=== PATIENT | female | born 1985 | race Caucasian/White ===

== ENCOUNTER → 2020-04-16 | Outpatient (CLI) | payer OTHER ==
[~2020-04-16] MED LIST: BUPRENORPHINE HC2 MG SL; IBU800 M1 PO; PRENATAL TABLE1 EAC2 PO
[2020-04-17 14:49] LABS: Appearance, Urine Clear (Clear); Bilirubin, Urine Neg (Neg); Blood, Urine Neg (Neg); Color, Urine Yellow (P-Yellow); Glucose Qualitative, Urine Neg (Neg); Ketones, Urine 3+ (Neg); Leukocyte Esterase, Urine Neg (Neg); Nitrite, Urine Neg (Neg); Protein, Urine Neg (Neg); Specific Gravity, Urine 1.015 (1.003-1.022); Urobilinogen, Urine NORM (Normal)
[2020-05-30 14:17] LABS: Source, Urine Clean Catch
== END ==
LOC: LAB SHORT 14:39 → LAB 14:39
PROVIDERS: Nurse Practitioner
DX: R10.2 Pelvic and perineal pain (principal)
CPT/HCPCS: 81003

== ENCOUNTER 2020-09-22 11:48 | Inpatient (IN) | payer OTHER ==
[~2020-09-22] VITALS: Ht 167.6 cm; Wt 199.0 kg
[2020-09-22] MEDS ORDERED: PRENATAL TABLE1 EAC2 PO (12:59)
[2020-09-22 13:00] LABS: BASOPHILS ABSOLUTE AUTO 0.03 K/mm3 (0.00-0.23); BASOPHILS PERCENT AUTO 0 % (0-2); EOSINOPHILS ABSOLUTE AUTO 0.05 K/mm3 (0.00-0.68); EOSINOPHILS PERCENT AUTO 1 % (0-6); Hemoglobin 10.2 g/dL (11.5-16.0); IMMATURE GRAN ABSOLUTE AUTO 0.04 K/mm3 (0.00-0.10); IMMATURE GRAN PERCENT AUTO 1 % (0-1); LYMPHOCYTES ABSOLUTE AUTO 2.08 K/mm3 (0.84-5.20); LYMPHOCYTES PERCENT AUTO 24 % (21-46); MONOCYTES ABSOLUTE AUTO 0.52 K/mm3 (0.16-1.47); MONOCYTES PERCENT AUTO 6 % (4-13); Mean Corpuscular HGB 23.9 pg (26.0-34.0); Mean Corpuscular HGB Conc 31.9 g/dL (31.5-36.5); Mean Corpuscular Volume 75 fL (80-100); Mean Platelet Volume 9.5 fL (9.1-12.4); NEUTROPHILS ABSOLUTE AUTO 5.96 K/mm3 (1.96-9.15); NEUTROPHILS PERCENT AUTO 69 % (41-73); Platelet Count 339 K/mm3 (150-400); RDW Coefficient Variation 14.1 % (11.7-14.2); RDW Standard Deviation 36.9 fL (35.1-46.3); Red Blood Cell Count 4.26 M/mm3 (3.80-5.20); White Blood Cell Count 8.68 K/mm3 (4.00-11.30)
[2020-09-22 13:26] LABS: SARS-Cov-2 (COVID-19) PCR, MMC NEGATIVE (NEGATIVE)
[2020-09-23 05:43] LABS: BASOPHILS ABSOLUTE AUTO 0.02 K/mm3 (0.00-0.23); BASOPHILS PERCENT AUTO 0 % (0-2); EOSINOPHILS PERCENT AUTO 0 % (0-6); Hemoglobin 8.6 g/dL (11.5-16.0); IMMATURE GRAN ABSOLUTE AUTO 0.08 K/mm3 (0.00-0.10); IMMATURE GRAN PERCENT AUTO 1 % (0-1); LYMPHOCYTES ABSOLUTE AUTO 1.94 K/mm3 (0.84-5.20); LYMPHOCYTES PERCENT AUTO 12 % (21-46); MONOCYTES ABSOLUTE AUTO 1.14 K/mm3 (0.16-1.47); MONOCYTES PERCENT AUTO 7 % (4-13); Mean Corpuscular HGB Conc 31.9 g/dL (31.5-36.5); Mean Corpuscular Volume 75 fL (80-100); Mean Platelet Volume 9.6 fL (9.1-12.4); NEUTROPHILS ABSOLUTE AUTO 13.44 K/mm3 (1.96-9.15); NEUTROPHILS PERCENT AUTO 81 % (41-73); Platelet Count 264 K/mm3 (150-400); RDW Coefficient Variation 14.1 % (11.7-14.2); RDW Standard Deviation 37.1 fL (35.1-46.3); Red Blood Cell Count 3.59 M/mm3 (3.80-5.20); White Blood Cell Count 16.62 K/mm3 (4.00-11.30)
--- NOTE | 2020-09-23 07:30 | NUR ---
0715 ASSUMED CARE REPT FROM [place] SOTO RN, PT CURRENTLY BREAST FEEDING USING NIPPLE SHIELD, WATER AND LINENS PASSED PT REQUEST RN RETURN AFTER NB BREAST FEEDS, PT CURRENTLY STATES PAIN LEVEL 4/10 "MY BODY JUST ACHES" BUT DELCINED NEEDING PAIN MEDICATION AT THIS TIME
--- NOTE | 2020-09-23 07:40 | NUR ---
LINENS PASSED PT SELF AMBULATES TO BATHROOM WITHOUT ASSISTANCE
--- NOTE | 2020-09-23 09:00 | NUR ---
ASSUMED CARE. PT SLEEPING SOUNDLY.
--- NOTE | 2020-09-23 09:02 | NUR ---
REPT TO Bautista DAVID RN
--- NOTE | 2020-09-23 10:30 | NUR ---
IN TO DO LAST BLOOD SUGAR ON NB, ASSIST WITH BRF LATCH. DOING WELL. ENCOURGED TO CALL WITH FEEDS NEEDED.
--- NOTE | 2020-09-25 06:32 | NUR ---
AT 0530 PT REQUESTED BUPENOPHRINE FOR RELIEF OF PAIN AND ANXIETY, AT 0630 PT STATES SHE FEELS MUCH IMPROVED
[2020-09-25] MEDS ORDERED: IBU800 M1 PO (13:11)
[2020-09-25] MEDS ORDERED: BUPRENORPHINE HC2 MG SL (13:11)
--- NOTE | 2020-09-25 14:00 | NUR ---
PT AGREED TO A CORE REFERALL
--- NOTE | 2020-09-25 20:44 | NUR ---
PT WAS DISCHARGED HOME AFTER EDUCATION AND QUESTIONS ANSWERED. BANDS MATCHED AND FOLLOW APPOINTMENTS MADE. ESCORTED BY RN TO VEHICLE WITH PATIENTS MOTHER.
== END 2020-09-25 20:30 | disposition home or self-care (01) | DRG 806 ==
LOC: OBS 11:48 → BC 12:15
PROVIDERS: ADMIT Obstetrics & Gynecology
PROC: 10E0XZZ Delivery of Products of Conception, External Approach (ICD-10-PCS; principal; 2020-09-22)
PROC: 0KQM0ZZ Repair Perineum Muscle, Open Approach (ICD-10-PCS; 2020-09-22)
PROC: 10907ZC Drainage of Amniotic Fluid, Therapeutic from Products of Conception, Via Natural or Artificial Opening (ICD-10-PCS; 2020-09-22)
PROC: 3E0R3BZ Introduction of Anesthetic Agent into Spinal Canal, Percutaneous Approach (ICD-10-PCS; 2020-09-22)
PROC: 00HU33Z Insertion of Infusion Device into Spinal Canal, Percutaneous Approach (ICD-10-PCS; 2020-09-22)
DX: O48.1 Prolonged pregnancy (principal); O99.324 Drug use complicating childbirth; Z37.0 Single live birth; Z3A.49 Greater than 42 weeks gestation of pregnancy; Z20.822 Contact with and (suspected) exposure to COVID-19; O70.1 Second degree perineal laceration during delivery; F11.10 Opioid abuse, uncomplicated; Z79.899 Other long term (current) drug therapy; Z98.890 Other specified postprocedural states; Z88.1 Allergy status to other antibiotic agents; Z88.8 Allergy status to other drugs, medicaments and biological substances
CPT/HCPCS: 36415; 51702; 85025; 86850; 86900; 86901; A9270; J1885; J2001; J2210; J2590; J3010; J7120; U0004

== ENCOUNTER 2020-11-05 14:42 | Emergency (ER) | payer OTHER ==
[~2020-11-05] VITALS: Ht 170.2 cm; Wt 65.8 kg
== END 2020-11-05 14:55 | disposition home or self-care (01) ==
LOC: ER 14:42
DX: Z76.0 Encounter for issue of repeat prescription (principal); Z79.891 Long term (current) use of opiate analgesic; Z88.1 Allergy status to other antibiotic agents
CPT/HCPCS: 99281

== ENCOUNTER → 2020-11-28 | Outpatient (CLI) | payer OTHER | LOC: LAB 17:58 → LAB SHORT 17:58 | DX: Z79.899 Other long term (current) drug therapy (principal); Z88.6 Allergy status to analgesic agent; Z88.1 Allergy status to other antibiotic agents | CPT/HCPCS: G0480 ==